=== PATIENT | male | born 1950 | race Caucasian/White ===

== ENCOUNTER 2018-11-01 21:11 | Inpatient (IN) ==
--- NOTE | 2018-11-01 21:23 | ED ---
HPI General Chief Complaint: Syncope Stated Complaint: syncopal episode Time Seen by Provider: 11/01/18 21:19 Source: patient and EMS Mode of arrival: EMS Limitations: no limitations History of Present Illness HPI narrative: Patient stated that he was drinking today throughout the day, and when he tried to stand up he was witnessed passing out. Falling down and hitting the ground on his forehead. Per witness there was no tonic-clonic seizure activity, and loss of consciousness. Was perhaps for approximately 20- 30 seconds max. Patient came to on his own and was able to ambulate on his own. However patient was immobilized by EMS once they arrived on scene. Patient gives a history of hypertension hypercholesterolemia and diabetes DVT as well as heart bypass surgery. MD complaint: Reports loss of consciousness Onset (ago): minute(s) (20) -: second(s) (20?) Description of event: Denies tonic-clonic movements, post-event confusion, focal shaking, incontinence, stopped breathing, lost pulse and CPR performed Prodromal symptoms: Reports none Witnessed: yes - by bystander Context: Reports standing up Injuries sustained associated with event: Reports face Current symptoms: Reports none History: Reports history of CAD; Denies seizure disorder and seizure disorder Treatments prior to arrival: Reports none Related Data Home Medications Medication Instructions Recorded Confirmed C,E,zinc,copper [id number] 1 cap PO DAILY 07/13/18 11/01/18 [Ocuvite Adult 50 Plus] aspirin [Aspirin Childrens] 81 mg PO DAILY 07/13/18 11/01/18 atorvastatin 40 mg PO DAILY 07/13/18 11/01/18 finasteride 5 mg PO DAILY 07/13/18 11/01/18 metformin 500 mg PO BID 07/13/18 11/01/18 metoprolol tartrate 25 mg PO BID 07/13/18 11/01/18 [id number]-lycopen-lutein 1 tab PO DAILY 07/13/18 11/01/18 [Centrum Silver Men] tamsulosin 0.4 mg PO DAILY 07/13/18 11/01/18 warfarin 7.5 mg PO DAILY 07/13/18 11/01/18 lisinopril 20 mg PO DAILY 11/02/18 11/02/18 oxymetazoline [Nasal Relief] 2 spray INTRANASAL Q12H PRN 11/02/18 11/02/18 sertraline 50 mg PO DAILY 11/02/18 11/02/18 Allergies Allergy/AdvReac Type Severity Reaction Status Date / Time No Known Allergies Allergy Verified 11/01/18 21:52 Review of Systems ROS: all other systems reviewed are negative PMFSH History History Provided By: Patient Medical History Medical History Hx of primary hypertension (Acute) History of high cholesterol (Acute) Hx of diabetes mellitus (Acute) Hx of thrombosis of lower extremity (Acute) Surgical History Surgical History Hx of umbilical hernia repair (Acute) Hx of heart bypass surgery (Acute) Family History Family History Other Epilepsy Social History Social History Substance History: Active Abuse Second Hand Smoke Exposure: No Smoking Status: Former smoker Tobacco Type: Cigarettes How Often Do You Have a Drink Containing Alcohol: Monthly or less Recent Out of Country Travel within the Last 8 Weeks: No Exam Narrative Exam Narrative: GENERAL: elderly male in no apparent distress. SKIN: Warm and dry. Patient has an abrasion over her right forehead, not deep enough to cause any or require any suturing HEAD: Atraumatic. Normocephalic. EYES: Pupils equal and round. No scleral icterus. No injection or drainage. ENT: No nasal bleeding or discharge. Mucous membranes pink and moist. NECK: Trachea midline. No JVD. CARDIOVASCULAR: Regular rate and rhythm. no rubs or gallops RESPIRATORY: No accessory muscle use. Clear to auscultation. Breath sounds equal bilaterally. GASTROINTESTINAL: Abdomen soft, non-tender, nondistended. No rebound or guarding MUSCULOSKELETAL: Extremities without clubbing, cyanosis, or edema. No obvious deformities. NEUROLOGICAL: Awake and alert. No obvious cranial nerve deficits. Motor grossly within normal limits. Five out of 5 muscle strength in the arms and legs. Normal speech. PSYCHIATRIC: Appropriate mood and affect; insight and judgment normal. Course Initial Documented Vital Signs Temperature 98.3 F 11/01/18 21:15 Pulse Rate 74 11/01/18 21:15 Respiratory Rate 20 11/01/18 21:15 Blood Pressure 111/52 L 11/01/18 21:15 Pulse Oximetry 94 L 11/01/18 21:15 Last Documented Vital Signs Temperature 98.4 F 11/03/18 11:50 Pulse Rate 72 11/03/18 11:50 Respiratory Rate 16 11/03/18 11:50 Blood Pressure 153/84 H 11/03/18 11:50 Pulse Oximetry 94 L 11/03/18 11:50 Sign Out Sign Out Data: Patient Sign Out occurred on 11/01/18 at 23:57. Patient's care was discussed, and care was transferred from Greg Hector to Lakia Sharma MD. Sign Out Comment: 68-year-old patient had a syncopal episode, small abrasion to right forehead. Has elevated troponin 0.12, no STEMI pattern on EKG... Signed out pending CT head and CT C-spine report... Last updated by Greg Hector at 11/01/18 23:03 Post-Handoff Eval: accepted in transfer of care from Dr Hector Medical Decision Making MDM Narrative Medical decision making narrative: No leukocytosis no anemia no platelet abnormality no left shift Adequately anticoagulated 3.2 INR Electrolytes are all within normal limit UA is negative for UTI Serum alcohol 108 Negative tox screen Elevated troponin 0.12 Medical Screen Exam Complete: Yes Emergency Medical Condition: Yes Lab Data Result diagrams: 11/02/18 09:35 11/02/18 09:35 Lab Results 11/01/18 11/01/18 11/01/18 Range/Units 21:40 21:40 21:40 CBC w Diff Auto diff final WBC 6.5 (4.0-11.0) th/mm3 RBC 4.38 L (4.50-5.90) mil/mm3 Hgb 13.9 (13.0-17.0) gm/dL Hct 41.5 (39.0-51.0) % MCV 94.8 (80.0-100.0) fL MCH 31.7 (27.0-34.0) pg MCHC 33.4 (32.0-36.0) % RDW 12.9 (11.6-17.2) % Plt Count 201 (150-450) th/mm3 MPV 7.8 (7.0-11.0) fL Neut % (Auto) 57.9 (16.0-70.0) % Lymph % (Auto) 31.0 (9.0-44.0) % [place] % (Auto) 8.2 H (0.0-8.0) % Eos % (Auto) 1.6 (0.0-4.0) % Baso % (Auto) 1.3 (0.0-2.0) % Neut # (Auto) 3.8 (1.8-7.7) th/mm3 Lymph # (Auto) 2.0 (1.0-4.8) th/mm3 [place] # (Auto) 0.5 (0.0-0.9) th/mm3 Eos # (Auto) 0.1 (0.0-0.4) th/mm3 Baso # (Auto) 0.1 (0.0-0.2) th/mm3 WBC Differential . Differential Comment . PT 31.8 H (9.8-11.6) sec INR 3.2 Ratio APTT 36.2 H (23.4-31.7) sec Sodium 142 (136-145) meq/L Potassium 3.8 (3.5-5.1) meq/L Chloride 107 (98-107) meq/L Carbon Dioxide 23.9 (21.0-32.0) meq/L Anion Gap 11 (5-15) meq/L BUN 17 (7-18) mg/dL Creatinine 1.10 (0.60-1.30) mg/dL Estimated GFR 66 L (>89) mL/min POC Glucose (68-110) mg/dl Random Glucose 141 H (74-106) mg/dL Calcium 7.5 L (8.5-10.1) mg/dL Magnesium (1.5-2.5) mg/dL Total Bilirubin 0.4 (0.2-1.0) mg/dL AST 24 (15-37) U/L ALT 40 (12-78) U/L Alkaline Phosphatase 57 (45-117) U/L Total Creatine Kinase 84 (39-308) U/L Troponin I 0.12 H (0.02-0.05) ng/mL B-Natriuretic Peptide (0-100) pg/mL Total Protein 6.4 (6.4-8.2) g/dL Albumin 3.5 (3.4-5.0) g/dL Urine Color (Yellw/Straw) Urine Clarity (Clear) Urine pH (5.0-8.5) Ur Specific [place] (1.002-1.035) Urine Protein (Neg-Trace) mg/dL Urine Glucose (UA) (Negative) mg/dL Urine Ketones (Negative) mg/dL Urine Occult Blood (Negative) Urine Nitrate (Negative) Urine Bilirubin (Negative) Urine Urobilinogen (Less than 2) mg/dL Ur Leukocyte Esterase (Negative) Urine RBC (0-3) /hpf Urine WBC (0-5) /hpf Ur Squamous Epith Cells (0-5) /hpf Micro UA Comment Ur Microscopic Review Urine Culture Comments Urine Opiates Screen (Neg) Ur Barbiturates Screen (Neg) Ur Amphetamines Screen (Neg) U Benzodiazepines Scrn (Neg) Urine Cocaine Screen (Neg) U Cannabinoids Screen (Neg) Serum Alcohol 108 H (0-5) mg/dL 11/01/18 11/01/18 11/01/18 Range/Units 21:40 21:45 21:45 CBC w Diff WBC (4.0-11.0) th/mm3 RBC (4.50-5.90) mil/mm3 Hgb (13.0-17.0) gm/dL Hct (39.0-51.0) % MCV (80.0-100.0) fL MCH (27.0-34.0) pg MCHC (32.0-36.0) % RDW (11.6-17.2) % Plt Count (150-450) th/mm3 MPV (7.0-11.0) fL Neut % (Auto) (16.0-70.0) % Lymph % (Auto) (9.0-44.0) % [place] % (Auto) (0.0-8.0) % Eos % (Auto) (0.0-4.0) % Baso % (Auto) (0.0-2.0) % Neut # (Auto) (1.8-7.7) th/mm3 Lymph # (Auto) (1.0-4.8) th/mm3 [place] # (Auto) (0.0-0.9) th/mm3 Eos # (Auto) (0.0-0.4) th/mm3 Baso # (Auto) (0.0-0.2) th/mm3 WBC Differential Differential Comment PT (9.8-11.6) sec INR Ratio APTT (23.4-31.7) sec Sodium (136-145) meq/L Potassium (3.5-5.1) meq/L Chloride (98-107) meq/L Carbon Dioxide (21.0-32.0) meq/L Anion Gap (5-15) meq/L BUN (7-18) mg/dL Creatinine (0.60-1.30) mg/dL Estimated GFR (>89) mL/min POC Glucose (68-110) mg/dl Random Glucose (74-106) mg/dL Calcium (8.5-10.1) mg/dL Magnesium (1.5-2.5) mg/dL Total Bilirubin (0.2-1.0) mg/dL AST (15-37) U/L ALT (12-78) U/L Alkaline Phosphatase (45-117) U/L Total Creatine Kinase (39-308) U/L Troponin I (0.02-0.05) ng/mL B-Natriuretic Peptide 100 (0-100) pg/mL Total Protein (6.4-8.2) g/dL Albumin (3.4-5.0) g/dL Urine Color Yellow (Yellw/Straw) Urine Clarity Clear (Clear) Urine pH 6.0 (5.0-8.5) Ur Specific [place] 1.010 (1.002-1.035) Urine Protein 100 H (Neg-Trace) mg/dL Urine Glucose (UA) Negative (Negative) mg/dL Urine Ketones Negative (Negative) mg/dL Urine Occult Blood Trace (Negative) Urine Nitrate Negative (Negative) Urine Bilirubin Negative (Negative) Urine Urobilinogen 0.2 (Less than 2) mg/dL Ur Leukocyte Esterase Negative (Negative) Urine RBC 0-3 (0-3) /hpf Urine WBC 0-5 (0-5) /hpf Ur Squamous Epith Cells 0-5 (0-5) /hpf Micro UA Comment Culture not ind Ur Microscopic Review Microscopic reviewed Urine Culture Comments Culture not ind Urine Opiates Screen Neg (Neg) Ur Barbiturates Screen Neg (Neg) Ur Amphetamines Screen Neg (Neg) U Benzodiazepines Scrn Neg (Neg) Urine Cocaine Screen Neg (Neg) U Cannabinoids Screen Neg (Neg) Serum Alcohol (0-5) mg/dL 11/01/18 11/02/18 11/02/18 Range/Units 21:55 04:20 04:20 CBC w Diff WBC (4.0-11.0) th/mm3 RBC (4.50-5.90) mil/mm3 Hgb (13.0-17.0) gm/dL Hct (39.0-51.0) % MCV (80.0-100.0) fL MCH (27.0-34.0) pg MCHC (32.0-36.0) % RDW (11.6-17.2) % Plt Count (150-450) th/mm3 MPV (7.0-11.0) fL Neut % (Auto) (16.0-70.0) % Lymph % (Auto) (9.0-44.0) % [place] % (Auto) (0.0-8.0) % Eos % (Auto) (0.0-4.0) % Baso % (Auto) (0.0-2.0) % Neut # (Auto) (1.8-7.7) th/mm3 Lymph # (Auto) (1.0-4.8) th/mm3 [place] # (Auto) (0.0-0.9) th/mm3 Eos # (Auto) (0.0-0.4) th/mm3 Baso # (Auto) (0.0-0.2) th/mm3 WBC Differential Differential Comment PT (9.8-11.6) sec INR Ratio APTT (23.4-31.7) sec Sodium (136-145) meq/L Potassium (3.5-5.1) meq/L Chloride (98-107) meq/L Carbon Dioxide (21.0-32.0) meq/L Anion Gap (5-15) meq/L BUN (7-18) mg/dL Creatinine (0.60-1.30) mg/dL Estimated GFR (>89) mL/min POC Glucose 147 H (68-110) mg/dl Random Glucose (74-106) mg/dL Calcium (8.5-10.1) mg/dL Magnesium 2.1 (1.5-2.5) mg/dL Total Bilirubin (0.2-1.0) mg/dL AST (15-37) U/L ALT (12-78) U/L Alkaline Phosphatase (45-117) U/L Total Creatine Kinase (39-308) U/L Troponin I 0.09 H (0.02-0.05) ng/mL B-Natriuretic Peptide (0-100) pg/mL Total Protein (6.4-8.2) g/dL Albumin (3.4-5.0) g/dL Urine Color (Yellw/Straw) Urine Clarity (Clear) Urine pH (5.0-8.5) Ur Specific [place] (1.002-1.035) Urine Protein (Neg-Trace) mg/dL Urine Glucose (UA) (Negative) mg/dL Urine Ketones (Negative) mg/dL Urine Occult Blood (Negative) Urine Nitrate (Negative) Urine Bilirubin (Negative) Urine Urobilinogen (Less than 2) mg/dL Ur Leukocyte Esterase (Negative) Urine RBC (0-3) /hpf Urine WBC (0-5) /hpf Ur Squamous Epith Cells (0-5) /hpf Micro UA Comment Ur Microscopic Review Urine Culture Comments Urine Opiates Screen (Neg) Ur Barbiturates Screen (Neg) Ur Amphetamines Screen (Neg) U Benzodiazepines Scrn (Neg) Urine Cocaine Screen (Neg) U Cannabinoids Screen (Neg) Serum Alcohol (0-5) mg/dL 11/02/18 11/02/18 11/02/18 Range/Units 08:03 09:35 09:35 CBC w Diff Auto diff final WBC 7.6 (4.0-11.0) th/mm3 RBC 4.30 L (4.50-5.90) mil/mm3 Hgb 13.3 (13.0-17.0) gm/dL Hct 40.8 (39.0-51.0) % MCV 94.9 (80.0-100.0) fL MCH 31.0 (27.0-34.0) pg MCHC 32.6 (32.0-36.0) % RDW 13.9 (11.6-17.2) % Plt Count 212 (150-450) th/mm3 MPV 7.9 (7.0-11.0) fL Neut % (Auto) 67.8 (16.0-70.0) % Lymph % (Auto) 21.7 (9.0-44.0) % [place] % (Auto) 8.5 H (0.0-8.0) % Eos % (Auto) 1.4 (0.0-4.0) % Baso % (Auto) 0.6 (0.0-2.0) % Neut # (Auto) 5.3 (1.8-7.7) th/mm3 Lymph # (Auto) 1.6 (1.0-4.8) th/mm3 [place] # (Auto) 0.6 (0.0-0.9) th/mm3 Eos # (Auto) 0.1 (0.0-0.4) th/mm3 Baso # (Auto) 0.0 (0.0-0.2) th/mm3 WBC Differential . Differential Comment . PT 35.3 H (9.8-11.6) sec INR 3.5 Ratio APTT (23.4-31.7) sec Sodium (136-145) meq/L Potassium (3.5-5.1) meq/L Chloride (98-107) meq/L Carbon Dioxide (21.0-32.0) meq/L Anion Gap (5-15) meq/L BUN (7-18) mg/dL Creatinine (0.60-1.30) mg/dL Estimated GFR (>89) mL/min POC Glucose 136 H (68-110) mg/dl Random Glucose (74-106) mg/dL Calcium (8.5-10.1) mg/dL Magnesium (1.5-2.5) mg/dL Total Bilirubin (0.2-1.0) mg/dL AST (15-37) U/L ALT (12-78) U/L Alkaline Phosphatase (45-117) U/L Total Creatine Kinase (39-308) U/L Troponin I (0.02-0.05) ng/mL B-Natriuretic Peptide (0-100) pg/mL Total Protein (6.4-8.2) g/dL Albumin (3.4-5.0) g/dL Urine Color (Yellw/Straw) Urine Clarity (Clear) Urine pH (5.0-8.5) Ur Specific [place] (1.002-1.035) Urine Protein (Neg-Trace) mg/dL Urine Glucose (UA) (Negative) mg/dL Urine Ketones (Negative) mg/dL Urine Occult Blood (Negative) Urine Nitrate (Negative) Urine Bilirubin (Negative) Urine Urobilinogen (Less than 2) mg/dL Ur Leukocyte Esterase (Negative) Urine RBC (0-3) /hpf Urine WBC (0-5) /hpf Ur Squamous Epith Cells (0-5) /hpf Micro UA Comment Ur Microscopic Review Urine Culture Comments Urine Opiates Screen (Neg) Ur Barbiturates Screen (Neg) Ur Amphetamines Screen (Neg) U Benzodiazepines Scrn (Neg) Urine Cocaine Screen (Neg) U Cannabinoids Screen (Neg) Serum Alcohol (0-5) mg/dL 11/02/18 11/02/18 11/02/18 Range/Units 09:35 12:15 17:09 CBC w Diff WBC (4.0-11.0) th/mm3 RBC (4.50-5.90) mil/mm3 Hgb (13.0-17.0) gm/dL Hct (39.0-51.0) % MCV (80.0-100.0) fL MCH (27.0-34.0) pg MCHC (32.0-36.0) % RDW (11.6-17.2) % Plt Count (150-450) th/mm3 MPV (7.0-11.0) fL Neut % (Auto) (16.0-70.0) % Lymph % (Auto) (9.0-44.0) % [place] % (Auto) (0.0-8.0) % Eos % (Auto) (0.0-4.0) % Baso % (Auto) (0.0-2.0) % Neut # (Auto) (1.8-7.7) th/mm3 Lymph # (Auto) (1.0-4.8) th/mm3 [place] # (Auto) (0.0-0.9) th/mm3 Eos # (Auto) (0.0-0.4) th/mm3 Baso # (Auto) (0.0-0.2) th/mm3 WBC Differential Differential Comment PT (9.8-11.6) sec INR Ratio APTT (23.4-31.7) sec Sodium 145 (136-145) meq/L Potassium 4.5 (3.5-5.1) meq/L Chloride 108 H (98-107) meq/L Carbon Dioxide 28.4 (21.0-32.0) meq/L Anion Gap 9 (5-15) meq/L BUN 21 H (7-18) mg/dL Creatinine 1.10 (0.60-1.30) mg/dL Estimated GFR 66 L (>89) mL/min POC Glucose 114 H 100 (68-110) mg/dl Random Glucose 109 H (74-106) mg/dL Calcium 8.5 D (8.5-10.1) mg/dL Magnesium (1.5-2.5) mg/dL Total Bilirubin 0.4 (0.2-1.0) mg/dL AST 21 (15-37) U/L ALT 39 (12-78) U/L Alkaline Phosphatase 59 (45-117) U/L Total Creatine Kinase (39-308) U/L Troponin I 0.09 H (0.02-0.05) ng/mL B-Natriuretic Peptide (0-100) pg/mL Total Protein 6.6 (6.4-8.2) g/dL Albumin 3.6 (3.4-5.0) g/dL Urine Color (Yellw/Straw) Urine Clarity (Clear) Urine pH (5.0-8.5) Ur Specific [place] (1.002-1.035) Urine Protein (Neg-Trace) mg/dL Urine Glucose (UA) (Negative) mg/dL Urine Ketones (Negative) mg/dL Urine Occult Blood (Negative) Urine Nitrate (Negative) Urine Bilirubin (Negative) Urine Urobilinogen (Less than 2) mg/dL Ur Leukocyte Esterase (Negative) Urine RBC (0-3) /hpf Urine WBC (0-5) /hpf Ur Squamous Epith Cells (0-5) /hpf Micro UA Comment Ur Microscopic Review Urine Culture Comments Urine Opiates Screen (Neg) Ur Barbiturates Screen (Neg) Ur Amphetamines Screen (Neg) U Benzodiazepines Scrn (Neg) Urine Cocaine Screen (Neg) U Cannabinoids Screen (Neg) Serum Alcohol (0-5) mg/dL 18 11/03/18 Range/Units 21:16 08:06 CBC w Diff WBC (4.0-11.0) th/mm3 RBC (4.50-5.90) mil/mm3 Hgb (13.0-17.0) gm/dL Hct (39.0-51.0) % MCV (80.0-100.0) fL MCH (27.0-34.0) pg MCHC (32.0-36.0) % RDW (11.6-17.2) % Plt Count (150-450) th/mm3 MPV (7.0-11.0) fL Neut % (Auto) (16.0-70.0) % Lymph % (Auto) (9.0-44.0) % [place] % (Auto) (0.0-8.0) % Eos % (Auto) (0.0-4.0) % Baso % (Auto) (0.0-2.0) % Neut # (Auto) (1.8-7.7) th/mm3 Lymph # (Auto) (1.0-4.8) th/mm3 [place] # (Auto) (0.0-0.9) th/mm3 Eos # (Auto) (0.0-0.4) th/mm3 Baso # (Auto) (0.0-0.2) th/mm3 WBC Differential Differential Comment PT (9.8-11.6) sec INR Ratio APTT (23.4-31.7) sec Sodium (136-145) meq/L Potassium (3.5-5.1) meq/L Chloride (98-107) meq/L Carbon Dioxide (21.0-32.0) meq/L Anion Gap (5-15) meq/L BUN (7-18) mg/dL Creatinine (0.60-1.30) mg/dL Estimated GFR (>89) mL/min POC Glucose 215 H 95 (68-110) mg/dl Random Glucose (74-106) mg/dL Calcium (8.5-10.1) mg/dL Magnesium (1.5-2.5) mg/dL Total Bilirubin (0.2-1.0) mg/dL AST (15-37) U/L ALT (12-78) U/L Alkaline Phosphatase (45-117) U/L Total Creatine Kinase (39-308) U/L Troponin I (0.02-0.05) ng/mL B-Natriuretic Peptide (0-100) pg/mL Total Protein (6.4-8.2) g/dL Albumin (3.4-5.0) g/dL Urine Color (Yellw/Straw) Urine Clarity (Clear) Urine pH (5.0-8.5) Ur Specific [place] (1.002-1.035) Urine Protein (Neg-Trace) mg/dL Urine Glucose (UA) (Negative) mg/dL Urine Ketones (Negative) mg/dL Urine Occult Blood (Negative) Urine Nitrate (Negative) Urine Bilirubin (Negative) Urine Urobilinogen (Less than 2) mg/dL Ur Leukocyte Esterase (Negative) Urine RBC (0-3) /hpf Urine WBC (0-5) /hpf Ur Squamous Epith Cells (0-5) /hpf Micro UA Comment Ur Microscopic Review Urine Culture Comments Urine Opiates Screen (Neg) Ur Barbiturates Screen (Neg) Ur Amphetamines Screen (Neg) U Benzodiazepines Scrn (Neg) Urine Cocaine Screen (Neg) U Cannabinoids Screen (Neg) Serum Alcohol (0-5) mg/dL Imaging Data Radiologist's impression: Cervical Spine CT 11/01/18 21:27 CONCLUSION: 1. No evidence of fracture or spondylolisthesis. 2. Moderate discogenic degenerative changes at C5-6. Head CT 11/01/18 21:27 CONCLUSION: 1. No acute findings in the brain. 2. Mild right supraorbital scalp swelling without evidence of skull fracture. . Chest X-Ray 11/01/18 21:28 CONCLUSION: No acute cardiopulmonary disease. ECG Data EKG Prior to Arrival: No Attestation: I personally reviewed and interpreted this ECG as follows: Prior ECG tracings: not available for review Interpretation: Normal sinus rhythm, 66 bpm, QRS and NE prolongation first- degree AV block, nonspecific T wave changes. Discharge Plan Discharge Disposition Patient Disposition: ED Admit(ED Internal Use Only) Discharge Condition Condition: Stable Discharge Order Discharge Orders: Discharge Order (Routine); Ordered 11/03/18 Ordered By: Nickolas Abarca ED Use Only Admit Order (Routine); Ordered 11/01/18 Ordered By: Greg Hector Discharge Details Anticipated Discharge Date: 11/03/18 Discharge Comment: May discharge if pending orthostatic testing has no variance greater than 20 mmHg, if it does call MD. Diagnosis: Syncope, Elevated troponin Physicians Team ED Provider: Lakia Sharma Primary Care Provider: UNKNOWN, Attending Provider: Nickolas Abarca Other Providers: Horenstein,Kang A Status ED Status: Left Department Discharge Information Discharge Date/Time: 11/02/18 14:45
--- NOTE | 2018-11-01 21:44 | XR ---
EXAM DATE: 11/01/2018 9:41 PM EST AGE/SEX: 68 years / Male INDICATIONS: Syncopal episode. CLINICAL DATA: This is the patient's initial encounter. Patient reports that signs and symptoms have been present for 1 day and indicates a pain score of 0/10. MEDICAL/SURGICAL HISTORY: Hypertension. Hypercholesterolemia. Diabetes. Coronary artery dise ase. CABG. COMPARISON: No prior exams available for comparison. FINDINGS: The lungs are clear without infiltrate, nodule, or mass. There is no appreciable pleural effusion for technique. Heart and mediastinum are unremarkable. There is evidence for prior median sternotomy. CONCLUSION: No acute cardiopulmonary disease. Electronically signed by: Jo Healy MD Board Certified Radiologist 11/01/2018 9:43 PM EST
[2018-11-01 21:56] LABS: Baso # (Auto) 0.1 th/mm3 (0.0-0.2); Baso % (Auto) 1.3 % (0.0-2.0); Eos # (Auto) 0.1 th/mm3 (0.0-0.4); Eos % (Auto) 1.6 % (0.0-4.0); Hematocrit 41.5 % (39.0-51.0); Hemoglobin 13.9 gm/dL (13.0-17.0); Mean Corpuscular HGB Conc 33.4 % (32.0-36.0); Mean Corpuscular Hemoglobin 31.7 pg (27.0-34.0); Mean Corpuscular Volume 94.8 fL (80.0-100.0); Mean Platelet Volume 7.8 fL (7.0-11.0); Mono # (Auto) 0.5 th/mm3 (0.0-0.9); Mono % (Auto) 8.2 % (0.0-8.0); Neut # (Auto) 3.8 th/mm3 (1.8-7.7); Neut % (Auto) 57.9 % (16.0-70.0); Platelet Count 201 th/mm3 (150-450); Red Blood Count 4.38 mil/mm3 (4.50-5.90); Red Cell Distribution Width 12.9 % (11.6-17.2); White Blood Count 6.5 th/mm3 (4.0-11.0)
[2018-11-01 22:02] LABS: Chloride 107 meq/L (98-107); Potassium 3.8 meq/L (3.5-5.1); Sodium 142 meq/L (136-145)
[2018-11-01 22:05] LABS: Calcium 7.5 mg/dL (8.5-10.1)
[2018-11-01 22:06] LABS: Albumin 3.5 g/dL (3.4-5.0); Anion Gap 11 meq/L (5-15); Blood Urea Nitrogen 17 mg/dL (7-18); Carbon Dioxide 23.9 meq/L (21.0-32.0); Glucose,Random 141 mg/dL (74-106)
[2018-11-01 22:07] LABS: Bilirubin,Urine Negative (Negative); Clarity,Urine Clear (Clear); Color,Urine Yellow (Yellw/Straw); Glucose,Urine (UA) Negative (Negative); Leukocyte Esterase,Urine Negative (Negative); Nitrite,Urine Negative (Negative); Urobilinogen,Urine 0.2 mg/dL (Less than 2)
[2018-11-01 22:07] LABS: Activated Partial Thrombo Time 36.2 sec (23.4-31.7); INR 3.2 Ratio; Prothrombin Time 31.8 sec (9.8-11.6)
[2018-11-01 22:09] LABS: Alanine Aminotransferase 40 U/L (12-78); Aspartate Aminotransferase 24 U/L (15-37); Glomerular Filtration Rate 66 mL/min (>89)
[2018-11-01 22:10] LABS: Total Protein 6.4 g/dL (6.4-8.2)
[2018-11-01 22:12] LABS: Alkaline Phosphatase 57 U/L (45-117)
[2018-11-01 22:13] LABS: RBC,Urine 0-3 /hpf (0-3); Squamous Epithelial Cell,Urine 0-5 /hpf (0-5); WBC,Urine 0-5 /hpf (0-5)
[2018-11-01 22:14] LABS: Cannabinoid Screen,Urine Neg (Neg); Cocaine Screen,Urine Neg (Neg)
[2018-11-01 22:14] LABS: Troponin I 0.12 ng/mL (0.02-0.05)
[2018-11-01 22:27] LABS: Amphetamine Screen,Urine Neg (Neg); Barbiturate Screen,Urine Neg (Neg)
[2018-11-01 22:30] LABS: Alcohol 108 mg/dL (0-5); Creatine Kinase 84 U/L (39-308)
[2018-11-01 22:30] LABS: Opiate Screen,Urine Neg (Neg)
[2018-11-01] MEDS ORDERED: Acetaminophen 325 MG Tablet PO PRN (22:58)
[2018-11-01] MEDS ORDERED: Bisacodyl 10 MG Supp RECTAL PRN (22:58)
[2018-11-01] MEDS ORDERED: Dextrose 50% in Water 50 ML Vial IV.PUSH PRN (23:00)
--- NOTE | 2018-11-01 23:36 | CT ---
EXAM DATE: 11/01/2018 11:22 PM EST AGE/SEX: 68 years / Male INDICATIONS: Syncopal episode. Hit forehead. CLINICAL DATA: This is the patient's initial encounter. Patient reports that signs and symptoms have been present for 1 day and indicates a pain score of 5/10. MEDICAL/SURGICAL HISTORY: Deep venous thrombosis. Diabetes. Hypertension. CABG. Umbilical he rnia repair. RADIATION DOSE: 26.65 CTDI (mGy) COMPARISON: No prior exams available for comparison. TECHNIQUE: Contiguous axial images were obtained using helical multirow detector technique. The vol umetric data was post-processed with multiplanar reconstruction in oblique axial, sagittal, and coron al planes. Using automated exposure control and adjustment of the mA and/or kV according to patient s ize, radiation dose was kept as low as reasonably achievable to obtain optimal diagnostic quality joellen ges. DICOM format image data is available electronically for review and comparison. FINDINGS: There is normal alignment of the vertebral bodies and preservation of vertebral body height. Moderat e severity discogenic degenerative changes at C5-6 with posterior osteophyte and posterior interspace narrowing. Partially bridging anterior paravertebral ossification is present C3-C5. The atlantoaxial articulation is intact. The posterior elements are in normal alignment without evidence of locked or perched facets. There is soft tissue ossification superficial to the spinous processes of C4 and C5. C2-3: No fracture seen. The neural foramina are patent. C3-4: No fracture seen. Mild left-sided bony neural foraminal stenosis. C4-5: No fracture seen. The neural foramina are patent. C5-6: No fracture seen. Moderate bilateral bony neural foraminal stenosis. C6-7: No fracture seen. The neural foramina are patent. C7-T1: No fracture seen. The neural foramina are patent. CONCLUSION: 1. No evidence of fracture or spondylolisthesis. 2. Moderate discogenic degenerative changes at C5-6. Electronically signed by: Adam Plasencia MD Board Certified Radiologist 11/01/2018 11:34 PM EST
--- NOTE | 2018-11-01 23:37 | CT ---
EXAM DATE: 11/01/2018 11:21 PM EST AGE/SEX: 68 years / Male INDICATIONS: Syncopal episode. Hit forehead. CLINICAL DATA: This is the patient's initial encounter. Patient reports that signs and symptoms have been present for 1 day and indicates a pain score of 7/10. MEDICAL/SURGICAL HISTORY: Deep venous thrombosis. Diabetes. Hypertension. CABG. Umbilical hernia repair. RADIATION DOSE: 64.08 CTDI (mGy) COMPARISON: No prior exams available for comparison. TECHNIQUE: CT of the head without contrast. Using automated exposure control and adjustment of the mA and/or kV according to patient size, radiation dose was kept as low as reasonably achievable to ob tain optimal diagnostic quality images. DICOM format image data is available electronically for revi ew and comparison. FINDINGS: Cerebrum: The ventricles are normal for age. No evidence of midline shift, mass lesion, hemorrhage or acute infarction. No extraaxial fluid collections are seen. Posterior Fossa: The cerebellum and brainstem are intact. The 4th ventricle is midline. The cerebe llopontine angle is unremarkable. Extracranial: The visualized portion of the orbits is intact. Skull: Mild right-sided supraorbital scalp swelling. No radiopaque foreign bodies. The calvaria is i ntact. No evidence of skull fracture. CONCLUSION: 1. No acute findings in the brain. 2. Mild right supraorbital scalp swelling without evidence of skull fracture. . Electronically signed by: Adam Plasencia MD Board Certified Radiologist 11/01/2018 11:36 PM EST
[2018-11-02] MEDS: Sertraline 50 MG Tablet PO SCH ×2 (02:22→09:17)
[2018-11-02] MEDS ORDERED: Lisinopril 20 MG Tablet PO ONE (07:30)
[2018-11-02] MEDS: Insulin NovoLOG Aspart Correctional Sugar Inj SQ SCH ×4 (08:08→21:17)
[2018-11-02] MEDS: Metoprolol Tartrate 25 MG Tablet PO SCH ×2 (08:51→21:13)
[2018-11-02] MEDS: Finasteride 5 MG Tablet PO SCH (09:17)
[2018-11-02] MEDS: Senna/Docusate Sodium 8.6/50 MG Tablet PO SCH ×2 (09:23→21:14)
[2018-11-02 09:45] LABS: Baso % (Auto) 0.6 % (0.0-2.0); Eos # (Auto) 0.1 th/mm3 (0.0-0.4); Eos % (Auto) 1.4 % (0.0-4.0); Hematocrit 40.8 % (39.0-51.0); Hemoglobin 13.3 gm/dL (13.0-17.0); Lymph # (Auto) 1.6 th/mm3 (1.0-4.8); Lymph % (Auto) 21.7 % (9.0-44.0); Mean Corpuscular HGB Conc 32.6 % (32.0-36.0); Mean Corpuscular Volume 94.9 fL (80.0-100.0); Mean Platelet Volume 7.9 fL (7.0-11.0); Mono # (Auto) 0.6 th/mm3 (0.0-0.9); Mono % (Auto) 8.5 % (0.0-8.0); Neut # (Auto) 5.3 th/mm3 (1.8-7.7); Neut % (Auto) 67.8 % (16.0-70.0); Platelet Count 212 th/mm3 (150-450); Red Cell Distribution Width 13.9 % (11.6-17.2); White Blood Count 7.6 th/mm3 (4.0-11.0)
[2018-11-02 09:57] LABS: Chloride 108 meq/L (98-107); Potassium 4.5 meq/L (3.5-5.1); Sodium 145 meq/L (136-145)
[2018-11-02 10:03] LABS: INR 3.5 Ratio; Prothrombin Time 35.3 sec (9.8-11.6)
[2018-11-02 10:23] LABS: Alanine Aminotransferase 39 U/L (12-78); Albumin 3.6 g/dL (3.4-5.0); Alkaline Phosphatase 59 U/L (45-117); Anion Gap 9 meq/L (5-15); Blood Urea Nitrogen 21 mg/dL (7-18); Calcium 8.5 mg/dL (8.5-10.1); Carbon Dioxide 28.4 meq/L (21.0-32.0); Glomerular Filtration Rate 66 mL/min (>89); Glucose,Random 109 mg/dL (74-106); Total Protein 6.6 g/dL (6.4-8.2); Troponin I 0.09 ng/mL (0.02-0.05)
[2018-11-02 10:33] LABS: Aspartate Aminotransferase 21 U/L (15-37)
--- NOTE | 2018-11-02 13:50 | ECG ---
Date Performed: 11/02/2018 Time Performed: 05:57:15 PTAGE: 68 years EKG: Sinus rhythm MODERATE INTRAVENTRICULAR CONDUCTION DELAY NONSPECIFIC ST & T-WAVE ABNORMALITY ABNORMAL ECG Since PREVIOUS TRACING , no significant change noted PREVIOUS TRACIN11/01/2018 21.49 DOCTOR: Kang Umanzor Interpretating Date/Time 11/02/2018 13:50:24
--- NOTE | 2018-11-02 13:50 | ECG ---
Date Performed: 11/01/2018 Time Performed: 21:49:51 PTAGE: 68 years EKG: Sinus rhythm MODERATE INTRAVENTRICULAR CONDUCTION DELAY NONSPECIFIC ST & T-WAVE ABNORMALITY PROLONGED QT INTERVAL ABNORMAL ECG Compared to PREVIOUS TRACING sinus rhythm has replaces atrial fibrillation with rvr PREVIOUS TRACING : 04/04/2014 09.33 DOCTOR: Kang Umanzor Interpretating Date/Time 11/02/2018 13:50:07
--- NOTE | 2018-11-02 15:05 | ECHRPT ---
Indication: Syncope CONCLUSIONS Normal left ventricular size. Mild concentric left ventricular hypertrophy. The left ventricular systolic function is low normal with an estimated ejection fraction in the rang e of 50- 55%. The left atrial size is moderately dilated. Trace mitral valve regurgitation. Mitral annular calcification is present. Trileaflet aortic valve. Aortic valve sclerosis is present. There is mild tricuspid valve regurgitation. The estimated pulmonary arterial pressure is 53 mmHg. BP: / HR: Rhythm: MEASUREMENTS (Male / Female) Normal Values Technical Quality:Fair 2D ECHO LV Diastolic Diameter PLAX 5.6 cm 4.2 - 5.9 / 3.9 - 5.3 cm LV Systolic Diameter PLAX 3.5 cm IVS Diastolic Thickness 1.2 cm 0.6 - 1.0 / 0.6 - 0.9 cm LVPW Diastolic Thickness 1.2 cm 0.6 - 1.0 / 0.6 - 0.9 cm LV Relative Wall Thickness 0.4 RV Internal Dim ED PLAX 3.9 cm LVOT Diameter 2.4 cm Aortic Root Diameter 3.7 cm LA Systolic Diameter LX 5.2 cm 3.0 - 4.0 / 2.7 - 3.8 cm M-MODE AV Cusp Separation MM 2.0 cm DOPPLER AV Peak Velocity 143.0 cm/s AV Peak Gradient 8.2 mmHg LVOT Peak Velocity 117.0 cm/s LVOT Peak Gradient 5.5 mmHg AV Area Cont Eq pk 3.7 cm Mitral E Point Velocity 114.0 cm/s Mitral A Point Velocity 134.0 cm/s Mitral E to A Ratio 0.9 LV E' Lateral Velocity 10.9 cm/s Mitral E to LV E' Lateral Ratio 10.5 LV E' Septal Velocity 4.2 cm/s Mitral E to LV E' Septal Ratio 27.2 TR Peak Velocity 328.0 cm/s TR Peak Gradient 43.0 mmHg Right Atrial Pressure 10.0 mmHg Pulmonary Artery Systolic Pressu 53.0 mmHg Right Ventricular Systolic Press 53.0 mmHg PV Peak Velocity 105.0 cm/s PV Peak Gradient 4.4 mmHg FINDINGS LEFT VENTRICLE Normal left ventricular size. Mild concentric left ventricular hypertrophy. The left ventricular systolic function is low normal with an estimated ejection fraction in the rang e of 50- 55%. RIGHT VENTRICLE Normal right ventricular size and systolic function. LEFT ATRIUM The left atrial size is moderately dilated. RIGHT ATRIUM The right atrial size is normal. ATRIAL SEPTUM Normal atrial septal thickness without atrial level shunting by limited color doppler interrogation. AORTA The aortic root and proximal ascending aorta are normal in size on limited imaging. MITRAL VALVE Trace mitral valve regurgitation. Mitral annular calcification is present. AORTIC VALVE Trileaflet aortic valve. Aortic valve sclerosis is present. TRICUSPID VALVE There is mild tricuspid valve regurgitation. The estimated pulmonary arterial pressure is 53 mmHg. PULMONARY VALVE Trivial pulmonary valve regurgitation. VESSELS The inferior vena cava was not well visualized. PERICARDIUM No pericardial effusion. Ciaran Arias MD, FACC (Electronically Signed) Final Date:02 November 2018 15:03
[2018-11-02] MEDS ORDERED: Labetalol HCl Inj 20 MG/4 ML Vial IV.PUSH ONE (17:00)
[2018-11-02] MEDS ORDERED: Labetalol HCl Inj 100 MG/20 ML Vial IV.PUSH ONE (17:00)
--- NOTE | 2018-11-02 17:04 | P.HP ---
History of Present Illness Primary Care Physician: UNKNOWN History of Present Illness: 68-year-old white male being admitted for syncope. Patient was in his usual state of health until sometime on Friday night around dinnertime when he was sitting at the chair and his son witnessed him just suddenly go from and awake talking state to slumping forward and losing consciousness and appearing pale, eventually falling out of his chair towards the ground. Patient denies having any chest pain preceding during or after the incident that he can recall. He denies biting his tongue or having any urinary incontinence. Son did not witness any tremoring or #seizure-like activity. Patient had apparently struck his face when he landed forward. He did have some bleeding from a cut that he suffered on his forehead which has now resolved. Patient reports having some chest pain in a resting position about 2 days prior with some mild radiation down to his left arm. At this time denies having any lester chest pain or shortness of breath. He does report having a deep soreness in his left arm. Patient reports being compliant with his medications including aspirin and statin. Says he takes Coumadin for history of a DVT and PE about 10-12 years ago. He reports having a normal stress test about 2 months ago from his [employer] office. Patient social history tells that he stopped smoking about 4 years ago. Says he last drank about 5 drinks of alcohol the day he passed out. Family history tells his sister having diabetes and another first-degree relative/uncle with epilepsy. In the emergency department EKG was done which I independently reviewed which showed no acute ST segment changes concerning for ischemia or infarction. Patient thinks that in the ambulance ride to the hospital he might have had a systolic blood pressure in the 80s which she can vaguely recall hearing the EMT say. However he has had normotensive to hypertensive pressures recorded while on the medical floor. Troponins are mildly elevated 0.09 with intact renal function on the blood work. Fairly high a blood alcohol level of 108. Inpatient Certification: I certify that the inpatient services were ordered in accordance with Medicare regulations governing the order. This includes certification that hospital inpatient services are reasonable and necessary and in the case of services not specified as inpatient-only under 42 CFR 419.22(n), that they are appropriately provided as inpatient services in accordance to with the 2-midnight benchmark under 43 CFR 412.3(e) Estimated Total Length of Stay (Days): 2 Plans for Post Hospital Care: Not yet determined Review of Systems All other systems reviewed negative except as stated in HPI [facility] - History History Provided By: Patient - Medical History Medical History: Medical History (Last Reviewed 11/02/18 @ 17:01 by Angelo Meyers MD) Hx of primary hypertension (Acute) History of high cholesterol (Acute) Hx of diabetes mellitus (Acute) Hx of thrombosis of lower extremity (Acute) - Surgical History Surgical History: Surgical History (Last Reviewed 11/02/18 @ 17:01 by Angelo Meyers MD) Hx of umbilical hernia repair (Acute) Hx of heart bypass surgery (Acute) H/O shoulder surgery - Family History Family History: Family History (Last Updated 11/02/18 @ 17:01 by Angelo Meyers MD) Other Epilepsy - Social History I have reviewed the patient's Social History: Yes - Tobacco History Second Hand Smoke Exposure: No Smoking Status: Former smoker Tobacco Type: Cigarettes - Alcohol History How Often Do You Have a Drink Containing Alcohol: Monthly or less - Substance Use History Substance History: Active Abuse - Substance Use Type Marijuana Status: Active Route Used: Inhalation Frequency: Every night Reason for Use: Sleep - Travel History Recent Travel Out of the Country Within the Last 8 Weeks: No - Immunization History Tetanus Immunization: >5 Years Medications and Allergies Active Medications: Active Medications Acetaminophen (Tylenol) 650 mg PO Q4H PRN PRN Reason: Temp > 100.4 Last Admin: 11/02/18 01:48 Dose: 650 mg Al Hydroxide/Mg Hydroxide (Milk Of Magnesia Liq) 30 ml PO Q12H PRN PRN Reason: Mild Constipation Aspirin (Aspirin Chew) 81 mg PO DAILY [facility] Last Admin: 11/02/18 08:51 Dose: 81 mg Atorvastatin Calcium (Lipitor) 40 mg PO DAILY [facility] Last Admin: 11/02/18 08:51 Dose: 40 mg Bisacodyl (Dulcolax Supp) 10 mg RECTAL DAILY PRN PRN Reason: SEVERE CONSITIPATION Dextrose (D50w Vial) 50 ml IV.PUSH UNSCH PRN PRN Reason: PER HYPOGLYCEMIA PROTOCOL Finasteride (Proscar) 5 mg PO DAILY [facility] Last Admin: 11/02/18 09:17 Dose: 5 mg Glucagon (Glucagon Inj) 1 mg OTHER PRN PRN PRN Reason: for Hypoglycemia Protocol Insulin Aspart (Novolog Insulin Correctional Sugar Inj) 0 unit SQ ACHS [facility]; Protocol Last Admin: 11/02/18 12:21 Dose: Not Given Labetalol HCl (Trandate Inj) 5 mg IV.PUSH NOW ONE Stop: 11/02/18 17:01 Lactulose (Lactulose Liq) 30 ml PO DAILY PRN PRN Reason: SEVERE CONSITIPATION Lisinopril (Prinivil) 20 mg PO DAILY [facility] Metoprolol Tartrate (Lopressor) 25 mg PO BID [facility] Last Admin: 11/02/18 08:51 Dose: 25 mg Multivitamins (Theragran) 1 tab PO DAILY [facility] Last Admin: 11/02/18 09:23 Dose: 1 tab Nitroglycerin (Nitro-Bid 2% Oint) 0.5 inch TOPICAL Q6HR PRN PRN Reason: CHEST PAIN Ondansetron HCl (Zofran Inj) 4 mg IV.PUSH Q6H PRN PRN Reason: NAUSEA OR VOMITING Oxymetazoline HCl (Afrin 0.05% Nasal [place]) 2 spray EACH NARE Q12H PRN PRN Reason: Nasal Congestion Last Admin: 11/02/18 02:21 Dose: 2 spray Senna/Docusate Sodium (Amy-Colace) 1 tab PO BID [facility] Last Admin: 11/02/18 09:23 Dose: 1 tab Sennosides (Senokot) 17.2 mg PO Q12H PRN PRN Reason: Moderate Constipation Sertraline HCl (Zoloft) 50 mg PO DAILY [facility] Last Admin: 11/02/18 09:17 Dose: 50 mg Sodium Chloride (Ns Flush) 2 ml IV.FLUSH BID [facility] Last Admin: 11/02/18 10:19 Dose: 2 ml Sodium Chloride (Ns Flush) 2 ml IV.FLUSH PRN PRN PRN Reason: FLUSH AFTER USING IV ACCESS Tamsulosin HCl (Flomax) 0.4 mg PO DAILY [facility] Last Admin: 11/02/18 08:51 Dose: 0.4 mg Allergies Allergy/AdvReac Type Severity Reaction Status Date / Time No Known Allergies Allergy Verified 11/01/18 21:52 Home Medications Medication Instructions Recorded Confirmed Type C,E,zinc,copper [id number] 1 cap PO DAILY 07/13/18 11/01/18 History [Ocuvite Adult 50 Plus] aspirin [Aspirin Childrens] 81 mg PO DAILY 07/13/18 11/01/18 History atorvastatin 40 mg PO DAILY 07/13/18 11/01/18 History finasteride 5 mg PO DAILY 07/13/18 11/01/18 History metformin 500 mg PO BID 07/13/18 11/01/18 History metoprolol tartrate 25 mg PO BID 07/13/18 11/01/18 History [id number]-lycopen-lutein 1 tab PO DAILY 07/13/18 11/01/18 History [Centrum Silver Men] tamsulosin 0.4 mg PO DAILY 07/13/18 11/01/18 History warfarin 7.5 mg PO DAILY 07/13/18 11/01/18 History lisinopril 20 mg PO DAILY 11/02/18 11/02/18 History oxymetazoline [Nasal Relief] 2 spray INTRANASAL Q12H PRN 11/02/18 11/02/18 History sertraline 50 mg PO DAILY 11/02/18 11/02/18 History Exam Vital signs: Vital Signs 11/01/18 21:15 11/01/18 21:30 11/01/18 21:40 Temperature 98.3 F Pulse Rate 74 69 Respiratory Rate 20 18 Blood Pressure 111/52 L 106/43 L Pulse Oximetry 94 L 94 L 94 L 11/01/18 22:00 11/01/18 23:30 11/02/18 01:00 Temperature Pulse Rate 58 L 62 60 Respiratory Rate 18 18 Blood Pressure 110/46 L 140/60 Pulse Oximetry 95 95 11/02/18 02:00 11/02/18 05:00 11/02/18 05:54 Temperature Pulse Rate 60 58 L 59 L Respiratory Rate 18 18 Blood Pressure 164/68 H 185/76 H Pulse Oximetry 99 97 11/02/18 07:00 11/02/18 07:16 11/02/18 07:17 Temperature 98.3 F Pulse Rate 74 56 L Respiratory Rate 18 16 Blood Pressure 192/88 H 190/80 H Pulse Oximetry 96 97 97 11/02/18 09:24 18 09:27 11/02/18 11:02 Temperature Pulse Rate 65 51 L 53 L Respiratory Rate 16 16 16 Blood Pressure 189/95 H 175/75 H 180/83 H Pulse Oximetry 97 97 11/02/18 12:25 11/02/18 14:40 11/02/18 16:25 Temperature 98.4 F Pulse Rate 56 L 56 L 60 Respiratory Rate 16 16 18 Blood Pressure 166/76 H 160/82 H 209/99 H Pulse Oximetry 97 96 97 Intake & Output 11/01/18 11/02/18 11/02/18 18:59 06:59 18:59 Output Total 200 / 200 Balance -200 / -200 Weight 88.451 kg Output: Urine 200 / 200 Narrative: VS: afebrile GENERAL: Awake and alert, no acute distress SKIN: Warm and dry. EYES: Pupils equal and round. No scleral icterus. No injection or drainage. ENT: No nasal bleeding or discharge. Mucous membranes pink and moist. Has a right forehead bruise with a mild cut that seems to be healing with no active bleeding at this time. CARDIOVASCULAR: Regular rate and rhythm. no murmurs RESPIRATORY: No accessory muscle use. Clear to auscultation. Breath sounds equal bilaterally. GASTROINTESTINAL: Abdomen soft, non-tender, nondistended. Extremities: No clubbing, cyanosis, or edema. No obvious deformities. MUSCULOSKELETAL: adequate muscle bulk and tone for age and habitus NEUROLOGICAL: Awake and alert. No obvious cranial nerve deficits. No facial droop nor slurred speech noted. +2 left patellar reflex, none on the right which the patient attributes to patellar trauma due to an accident as an adolescent. PSYCHIATRIC: Appropriate mood and affect; insight and judgment normal. Results - Labs CBC & Chem 7: 11/02/18 09:35 11/02/18 09:35 Labs: Laboratory Results - last 24 hr 11/01/18 11/01/18 11/01/18 21:40 21:40 21:40 CBC w Diff Auto diff final WBC 6.5 RBC 4.38 L Hgb 13.9 Hct 41.5 MCV 94.8 MCH 31.7 MCHC 33.4 RDW 12.9 Plt Count 201 MPV 7.8 Neut % (Auto) 57.9 Lymph % (Auto) 31.0 Bucks % (Auto) 8.2 H Eos % (Auto) 1.6 Baso % (Auto) 1.3 Neut # (Auto) 3.8 Lymph # (Auto) 2.0 Bucks # (Auto) 0.5 Eos # (Auto) 0.1 Baso # (Auto) 0.1 WBC Differential . Differential Comment . PT 31.8 H INR 3.2 APTT 36.2 H Sodium 142 Potassium 3.8 Chloride 107 Carbon Dioxide 23.9 Anion Gap 11 BUN 17 Creatinine 1.10 Estimated GFR 66 L POC Glucose Random Glucose 141 H Calcium 7.5 L Magnesium Total Bilirubin 0.4 AST 24 ALT 40 Alkaline Phosphatase 57 Total Creatine Kinase 84 Troponin I 0.12 H B-Natriuretic Peptide Total Protein 6.4 Albumin 3.5 Urine Color Urine Clarity Urine pH Ur Specific [place] Urine Protein Urine Glucose (UA) Urine Ketones Urine Occult Blood Urine Nitrate Urine Bilirubin Urine Urobilinogen Ur Leukocyte Esterase Urine RBC Urine WBC Ur Squamous Epith Cells Micro UA Comment Ur Microscopic Review Urine Culture Comments Urine Opiates Screen Ur Barbiturates Screen Ur Amphetamines Screen U Benzodiazepines Scrn Urine Cocaine Screen U Cannabinoids Screen Serum Alcohol 108 H 11/01/18 11/01/18 11/01/18 21:40 21:45 21:45 CBC w Diff WBC RBC Hgb Hct MCV MCH MCHC RDW Plt Count MPV Neut % (Auto) Lymph % (Auto) [place] % (Auto) Eos % (Auto) Baso % (Auto) Neut # (Auto) Lymph # (Auto) [place] # (Auto) Eos # (Auto) Baso # (Auto) WBC Differential Differential Comment PT INR APTT Sodium Potassium Chloride Carbon Dioxide Anion Gap BUN Creatinine Estimated GFR POC Glucose Random Glucose Calcium Magnesium Total Bilirubin AST ALT Alkaline Phosphatase Total Creatine Kinase Troponin I B-Natriuretic Peptide 100 Total Protein Albumin Urine Color Yellow Urine Clarity Clear Urine pH 6.0 Ur Specific [place] 1.010 Urine Protein 100 H Urine Glucose (UA) Negative Urine Ketones Negative Urine Occult Blood Trace Urine Nitrate Negative Urine Bilirubin Negative Urine Urobilinogen 0.2 Ur Leukocyte Esterase Negative Urine RBC 0-3 Urine WBC 0-5 Ur Squamous Epith Cells 0-5 Micro UA Comment Culture not ind Ur Microscopic Review Microscopic reviewed Urine Culture Comments Culture not ind Urine Opiates Screen Neg Ur Barbiturates Screen Neg Ur Amphetamines Screen Neg U Benzodiazepines Scrn Neg Urine Cocaine Screen Neg U Cannabinoids Screen Neg Serum Alcohol 11/01/18 11/02/18 11/02/18 21:55 04:20 04:20 CBC w Diff WBC RBC Hgb Hct MCV MCH MCHC RDW Plt Count MPV Neut % (Auto) Lymph % (Auto) [place] % (Auto) Eos % (Auto) Baso % (Auto) Neut # (Auto) Lymph # (Auto) [place] # (Auto) Eos # (Auto) Baso # (Auto) WBC Differential Differential Comment PT INR APTT Sodium Potassium Chloride Carbon Dioxide Anion Gap BUN Creatinine Estimated GFR POC Glucose 147 H Random Glucose Calcium Magnesium 2.1 Total Bilirubin AST ALT Alkaline Phosphatase Total Creatine Kinase Troponin I 0.09 H B-Natriuretic Peptide Total Protein Albumin Urine Color Urine Clarity Urine pH Ur Specific [place] Urine Protein Urine Glucose (UA) Urine Ketones Urine Occult Blood Urine Nitrate Urine Bilirubin Urine Urobilinogen Ur Leukocyte Esterase Urine RBC Urine WBC Ur Squamous Epith Cells Micro UA Comment Ur Microscopic Review Urine Culture Comments Urine Opiates Screen Ur Barbiturates Screen Ur Amphetamines Screen U Benzodiazepines Scrn Urine Cocaine Screen U Cannabinoids Screen Serum Alcohol 11/02/18 11/02/18 11/02/18 08:03 09:35 09:35 CBC w Diff Auto diff final WBC 7.6 RBC 4.30 L Hgb 13.3 Hct 40.8 MCV 94.9 MCH 31.0 MCHC 32.6 RDW 13.9 Plt Count 212 MPV 7.9 Neut % (Auto) 67.8 Lymph % (Auto) 21.7 [place] % (Auto) 8.5 H Eos % (Auto) 1.4 Baso % (Auto) 0.6 Neut # (Auto) 5.3 Lymph # (Auto) 1.6 [place] # (Auto) 0.6 Eos # (Auto) 0.1 Baso # (Auto) 0.0 WBC Differential . Differential Comment . PT 35.3 H INR 3.5 APTT Sodium Potassium Chloride Carbon Dioxide Anion Gap BUN Creatinine Estimated GFR POC Glucose 136 H Random Glucose Calcium Magnesium Total Bilirubin AST ALT Alkaline Phosphatase Total Creatine Kinase Troponin I B-Natriuretic Peptide Total Protein Albumin Urine Color Urine Clarity Urine pH Ur Specific [place] Urine Protein Urine Glucose (UA) Urine Ketones Urine Occult Blood Urine Nitrate Urine Bilirubin Urine Urobilinogen Ur Leukocyte Esterase Urine RBC Urine WBC Ur Squamous Epith Cells Micro UA Comment Ur Microscopic Review Urine Culture Comments Urine Opiates Screen Ur Barbiturates Screen Ur Amphetamines Screen U Benzodiazepines Scrn Urine Cocaine Screen U Cannabinoids Screen Serum Alcohol 11/02/18 11/02/18 09:35 12:15 CBC w Diff WBC RBC Hgb Hct MCV MCH MCHC RDW Plt Count MPV Neut % (Auto) Lymph % (Auto) [place] % (Auto) Eos % (Auto) Baso % (Auto) Neut # (Auto) Lymph # (Auto) [place] # (Auto) Eos # (Auto) Baso # (Auto) WBC Differential Differential Comment PT INR APTT Sodium 145 Potassium 4.5 Chloride 108 H Carbon Dioxide 28.4 Anion Gap 9 BUN 21 H Creatinine 1.10 Estimated GFR 66 L POC Glucose 114 H Random Glucose 109 H Calcium 8.5 D Magnesium Total Bilirubin 0.4 AST 21 ALT 39 Alkaline Phosphatase 59 Total Creatine Kinase Troponin I 0.09 H B-Natriuretic Peptide Total Protein 6.6 Albumin 3.6 Urine Color Urine Clarity Urine pH Ur Specific [place] Urine Protein Urine Glucose (UA) Urine Ketones Urine Occult Blood Urine Nitrate Urine Bilirubin Urine Urobilinogen Ur Leukocyte Esterase Urine RBC Urine WBC Ur Squamous Epith Cells Micro UA Comment Ur Microscopic Review Urine Culture Comments Urine Opiates Screen Ur Barbiturates Screen Ur Amphetamines Screen U Benzodiazepines Scrn Urine Cocaine Screen U Cannabinoids Screen Serum Alcohol - Imaging Impressions Cervical Spine CT 11/01/18 21:27 CONCLUSION: 1. No evidence of fracture or spondylolisthesis. 2. Moderate discogenic degenerative changes at C5-6. Head CT 11/01/18 21:27 CONCLUSION: 1. No acute findings in the brain. 2. Mild right supraorbital scalp swelling without evidence of skull fracture. . Chest X-Ray 11/01/18 21:28 CONCLUSION: No acute cardiopulmonary disease. Caprini VTE Risk Assessment Caprini VTE Risk Assessment: Moderate/High Risk (score >= 2) Caprini Risk Assessment Model: Point Value = 1 Point Value = 2 Point Value = 3 Point Value = 5 Age 41-60 Minor surgery BMI > 25 kg/m2 Swollen legs Varicose veins or History of unexplained or recurrent spontaneous Oral contraceptives or hormone replacement Sepsis (< 1 month) Serious lung disease, including pneumonia (< 1 month) Abnormal pulmonary function Acute myocardial infarction Congestive heart failure (< 1 month) History of inflammatory bowel disease Medical patient at bed rest Age 61-74 Arthroscopic surgery Major open surgery (> 45 min) Laparoscopic surgery (> 45 min) Malignancy Confined to bed (> 72 hours) Immobilizing plaster cast Central venous access Age >= 75 History of VTE Family history of VTE Factor V Leiden Prothrombin 14120C Lupus anticoagulant Anticardiolipin antibodies Elevated serum homocysteine Heparin-induced thrombocytopenia Other congenital or acquired thrombophilia Stroke (< 1 month) Elective arthroplasty Hip, pelvis, or leg fracture Acute spinal cord injury (< 1 month) Prophylaxis Regimen: Total Risk Factor Score Risk Level Prophylaxis Regimen 0-1 Low Early ambulation 2 Moderate Order ONE of the following: *Sequential Compression Device (SCD) *Heparin 5000 units SQ BID 3-4 Higher Order ONE of the following medications: *Heparin 5000 units SQ TID *Enoxaparin/Lovenox 40 mg SQ daily (WT < 150 kg, CrCl > 30 mL/min) *Enoxaparin/Lovenox 30 mg SQ daily (WT < 150 kg, CrCl > 10-29 mL/min) *Enoxaparin/Lovenox 30 mg SQ BID (WT < 150 kg, CrCl > 30 mL/min) AND/OR *Sequential Compression Device (SCD) 5 or more Highest Order ONE of the following medications: *Heparin 5000 units SQ TID (Preferred with Epidurals) *Enoxaparin/Lovenox 40 mg SQ daily (WT < 150 kg, CrCl > 30 mL/min) *Enoxaparin/Lovenox 30 mg SQ daily (WT < 150 kg, CrCl > 10-29 mL/min) *Enoxaparin/Lovenox 30 mg SQ BID (WT < 150 kg, CrCl > 30 mL/min) AND *Sequential Compression Device (SCD) Assessment and Plan - Plan 68-year-old white male admitted for syncope with minimally elevated troponins. Syncope History is very consistent with a cardiogenic syncopal episode (vasovagal versus atypical arrhythmia otherwise) -Keep on telemetry, case discussed with Dr. Ferrer, will consult cardiology, no need to heparinize the patient at this time -bmp in AM -Unlikely anything truly neurogenic but will obtain EEG for baseline Contusion w/ scalp edema -Secondary to syncopal episode, monitor for any neuro changes -may consider holding coumadin for now -CT head negative for any intracranial bleeds History of DVT and PE therapeutic on coumadin, hold for now until tomorrow as long as neurochecks remained stable can resume CAD Continue home aspirin and statin -Continue home metoprolol and lisinopril BPH Continue home Flomax and finasteride Elevated alcohol level -We will place on CIWA protocol for now Therapeutic on Coumadin right now, consider resuming Coumadin tomorrow as long as neurochecks remain stable
[2018-11-02] MEDS ORDERED: Labetalol HCl Inj 100 MG/20 ML Vial IV.PUSH PRN (17:05)
[2018-11-02] MEDS ORDERED: Lisinopril 20 MG Tablet PO SCH (17:15)
[2018-11-02] MEDS ORDERED: Haloperidol Inj 5 MG/ML Ampul IV.PUSH PRN (20:07)
[2018-11-02] MEDS ORDERED: LORazepam 1 MG Tablet PO PRN (20:07)
[2018-11-03 08:08] VITALS: TEMP 98.4
[2018-11-03] MEDS: Sertraline 50 MG Tablet PO SCH (09:00)
[2018-11-03] MEDS ORDERED: Lisinopril 20 MG Tablet PO SCH (09:00)
[2018-11-03] MEDS: Finasteride 5 MG Tablet PO SCH (09:00)
[2018-11-03] MEDS ORDERED: Vitamins A,C,E/Lutein/Minerals Tablet PO SCH (09:00)
[2018-11-03] MEDS: Metoprolol Tartrate 25 MG Tablet PO SCH (09:00)
[2018-11-03] MEDS: Senna/Docusate Sodium 8.6/50 MG Tablet PO SCH (09:01)
[2018-11-03] MEDS: Insulin NovoLOG Aspart Correctional Sugar Inj SQ SCH (09:01)
--- NOTE | 2018-11-03 10:58 | P.DS ---
DS: Providers Date of admission: 11/01/18 23:01 Primary care physician: UNKNOWN Consults: 11/02/18 16:55 Consult to Cardiology Routine Consulting Provider: Kang Umanzor Does the patient have a State Appellate Clerk who follows them?: Yes Preferred Tax Associate Attorney:: Kang Umanzor Reason for Consultation: syncope Notified:: Service Spoke with:: YOLANDE Date Notified:: 11/02/18 Time Notified:: 17:12 Ordering Provider: BIANCA Brief History from admission: 68-year-old white male being admitted for syncope. Patient was in his usual state of health until sometime on Friday night around dinnertime when he was sitting at the chair and his son witnessed him just suddenly go from and awake talking state to slumping forward and losing consciousness and appearing pale, eventually falling out of his chair towards the ground. Patient denies having any chest pain preceding during or after the incident that he can recall. He denies biting his tongue or having any urinary incontinence. Son did not witness any tremoring or #seizure-like activity. Patient had apparently struck his face when he landed forward. He did have some bleeding from a cut that he suffered on his forehead which has now resolved. Patient reports having some chest pain in a resting position about 2 days prior with some mild radiation down to his left arm. At this time denies having any lester chest pain or shortness of breath. He does report having a deep soreness in his left arm. Patient reports being compliant with his medications including aspirin and statin. Says he takes Coumadin for history of a DVT and PE about 10-12 years ago. 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 Patient social history tells that he stopped smoking about 4 years ago. Says he last drank about 5 drinks of alcohol the day he passed out. Family history tells his sister having diabetes and another first-degree relative/uncle with epilepsy. In the emergency department EKG was done which I independently reviewed which showed no acute ST segment changes concerning for ischemia or infarction. Patient thinks that in the ambulance ride to the hospital he might have had a systolic blood pressure in the 80s which she can vaguely recall hearing the EMT say. However he has had normotensive to hypertensive pressures recorded while on the medical floor. Troponins are mildly elevated 0.09 with intact renal function on the blood work. Fairly high a blood alcohol level of 108. DS: Summary Mr. Cruz is a 68-year-old male. He was admitted secondary to syncopal episode. He also had a contusion at his right eyebrow/orbit. No signs of bleeding overnight. No neurologic changes. CT scan of the brain shows no evidence of hemorrhage. Patient is feeling back to baseline other than his right eye. He has no previous syncopal episode. The syncopal episode occurred while he was eating and sitting down, without position change. Paramedics found low blood pressure and had some suspicion for dehydration both of which would be contributory. he does admit that he had some alcohol last night and is not a regular drinker, this may have been contributory. No signs of abnormal heart rhythm on telemetry. No acute concerns on orthostatic blood pressure testing. Patient medically stable and cleared for discharge to home today. Time Spent with Patient Total time spent providing and/or coordinating discharge services: Results Labs on day of discharge: Labs from last 24 hours 11/03/18 11/02/18 11/02/18 08:06 21:16 17:09 POC Glucose 95 215 H 100 11/02/18 12:15 POC Glucose 114 H Impressions ITS Impressions Cervical Spine CT 11/01/18 21:27 CONCLUSION: 1. No evidence of fracture or spondylolisthesis. 2. Moderate discogenic degenerative changes at C5-6. Head CT 11/01/18 21:27 CONCLUSION: 1. No acute findings in the brain. 2. Mild right supraorbital scalp swelling without evidence of skull fracture. . Chest X-Ray 11/01/18 21:28 CONCLUSION: No acute cardiopulmonary disease. Discharge Plan Discharge Disposition Patient Disposition: 01 Discharge Home Discharge Condition Condition: Stable Discharge Order Discharge Orders: Discharge Order (Routine); Ordered 11/03/18 Ordered By: Nickolas Abarca Discharge Details Anticipated Discharge Date: 11/03/18 Discharge Comment: May discharge if pending orthostatic testing has no variance greater than 20 mmHg, if it does call MD. Physicians Team Primary Care Provider: UNKNOWN, Attending Provider: Nickolas Abarca Other Providers: Kang Umanzor Rxs /Orders / Referrals /Forms Prescriptions: Continue atorvastatin 40 mg Tablet 40 mg PO DAILY RF: 0 metformin 500 mg Tablet 500 mg PO BID RF: 0 warfarin 7.5 mg Tablet 7.5 mg PO DAILY RF: 0 tamsulosin 0.4 mg Capsule,Extended Release 24hr 0.4 mg PO DAILY RF: 0 aspirin [Aspirin Childrens] 81 mg Tablet,Chewable 81 mg PO DAILY RF: 0 finasteride 5 mg Tablet 5 mg PO DAILY RF: 0 metoprolol tartrate 25 mg Tablet 25 mg PO BID RF: 0 C,E,zinc,copper [id number] [Ocuvite Adult 50 Plus] 250-5-1 mg Capsule 1 cap PO DAILY RF: 0 htybjpmz-[id number]-BG-lycopen-lutein [Centrum Silver Men] 300-600-300 mcg Tablet 1 tab PO DAILY RF: 0 sertraline 50 mg Tablet 50 mg PO DAILY RF: 0 oxymetazoline [Nasal Relief] 0.05 % [place],Non-Aerosol 2 spray INTRANASAL Q12H PRN (Reason: Nasal Congestion) RF: 0 lisinopril 20 mg Tablet 20 mg PO DAILY RF: 0 Referrals: Juan Thomas MD [Family Provider] - See Instructions UNKNOWN, [Primary Care Provider] - See Instructions Status ED Status: Left Department
--- NOTE | 2018-11-03 11:17 | MB ---
cc: Johnny Flood MD, Joshua A MD DATE: 11/03/2018 REASON FOR CONSULTATION: Syncope. HISTORY OF PRESENT ILLNESS: The patient is a 68-year-old white male, followed in our office by Dr. Kang Umanzor, with a history of hypertension, diabetes, hyperlipidemia, pulmonary embolism 2004, coronary artery disease, who was in his usual state of health up until 8 p.m. last night when he lost consciousness while sitting at the table. He had just finished eating dinner. He cannot recall having any preceding lightheadedness, palpitations, pain, or nausea. The patient apparently was unconscious just for a few seconds. When he regained consciousness, there was no disorientation, bowel or urinary incontinence. He denies any other episodes of syncope. About 2 days ago, he had an approximately 30-minute episode of substernal chest pain with some radiation to his left shoulder. He denies any other chest discomforts in the last few months. The patient denies pleurisy, pedal edema, shortness of breath, palpitations, paroxysmal nocturnal dyspnea. Of note, on the day he lost consciousness he did drink a bit heavier than usual, 5 alcoholic drinks. PAST MEDICAL HISTORY: 1. Hypertension. 2. Deep venous thrombosis and pulmonary embolism in November 2004. 3. Coronary artery disease status post bypass surgery 04/04/2014 with a left internal mammary artery to the LAD and 3 separate vein grafts to the obtuse marginal, posterior descending artery, posterolateral branch. 4. Hyperlipidemia. 5. Diabetes. 6. Post-bypass surgery atrial fibrillation. CARDIAC MEDICATIONS AT HOME: 1. Aspirin 81 mg daily. 2. Atorvastatin 40 mg at bedtime. 3. Metoprolol tartrate 25 mg b.i.d. 4. Warfarin 7.5 mg daily. ALLERGIES: NO KNOWN DRUG ALLERGIES. FAMILY HISTORY: Noncontributory. SOCIAL HISTORY: The patient quit smoking 4 years ago. He denies drug abuse. He occasionally drinks alcohol. REVIEW OF SYSTEMS: As in the history of present illness, otherwise negative or noncontributory. He also denies headache, abdominal pain, melena, dyspepsia, bright red blood per rectum. PHYSICAL EXAMINATION: VITAL SIGNS: Blood pressure 156/81 with pulse 80, respirations 14. GENERAL: He is a well-developed, well-nourished white male, in no acute distress. HEENT: Jugular venous pressure is normal. Carotid pulses are 2+ bilaterally and without bruits. LUNGS: Reveals unlabored respiratory effort with clear lungs alejandro. CARDIAC: He has a regular rhythm and rate without S3, S4, or murmur. ABDOMEN: He had a soft, nontender abdomen. Bowel sounds are present. There is no definite hepatosplenomegaly. EXTREMITIES: Reveals no clubbing, cyanosis or edema. LABORATORY DATA: Includes potassium 3.8, BUN 17, creatinine 1.10. Troponin 0.12. WBC 7.6, hemoglobin 13.3, platelets 212. INR 3.5. Chest x-ray shows no acute disease. EKG shows sinus rhythm, nonspecific intraventricular conduction delay, nonspecific ST and T-wave abnormalities. IMPRESSION: Syncopal episode in this 68-year-old white male with a history of coronary artery disease, diabetes, hyperlipidemia, hypertension, deep venous thrombosis and pulmonary embolism 2004. Overall, I doubt he lost consciousness due to a cardiac arrhythmia. Having consumed a considerable amount of alcohol may have contributed to his loss of consciousness. His episode may have also been vasovagal mediated. Monitoring so far has been uneventful. Echocardiogram today is overall unremarkable. With respect to his coronary artery disease, he had one single episode of chest discomfort 2 days ago, but otherwise has been chest pain free. His nuclear stress test on 06/18/2018 was minimally abnormal with a small amount of mild inferolateral reversibility. RECOMMENDATIONS: 1. Twenty four more hours of monitoring. Should the patient have recurrent unexplained syncope in the future, consider a loop recorder. 2. Continue medical therapy of his coronary artery disease. MD JUAN Kirkpatrick/james , 09:59 AM , 10:08 AM SAE
[2018-11-03 11:51] VITALS: BP 153/84; PULSE 72; RESP 16; O2SAT 94
--- NOTE | 2018-11-04 08:35 | MG ---
cc: Toribio Santiago MD ELECTROENCEPHALOGRAM RECORD NUMBER: [id number]. DESCRIPTION: 8-9 Hz alpha activity, 20-30 microvolts. Good anterior to posterior gradient. Reasonably good driving with photic stimulation. Frequent eye movement artifact. Single lead EKG showing sinus rhythm. There are a lot of movements, mild slowing in the background suggestive of drowsy state. INTERPRETATION: Normal awake, drowsy electroencephalogram. Clinical correlation. MD ZEKE Montgomery/ike , 07:37 AM , 07:41 AM
== END 2018-11-03 13:33 | disposition home or self-care (01) ==
LOC: PHED 21:11 → PHEDA 23:01 → HCIS 11-02 15:38
PROVIDERS: ADMIT Hospitalist; ATTEND Hospitalist